=== PATIENT | female | born 1955 | race African-American/Black ===

== ENCOUNTER 2021-12-21 22:14 | Emergency (ER) | payer MEDICARE ==
[~2021-12-21] VITALS: Ht 172.7 cm; Wt 82.6 kg
[2021-12-21] MEDS ORDERED: OXYMETAZOLINE HCL 0.05% NAS 1 SPRAY BTL ONE (23:36)
[2021-12-22] MEDS ORDERED: OXYMETAZOLINE HCL 0.05% NAS 1 SPRAY BTL ONE
[2021-12-22 00:02] VITALS: BP 147/82
== END 2021-12-22 00:02 | disposition home or self-care (01) ==
LOC: FSED 22:38
DX: R04.0 Epistaxis (principal); I10 Essential (primary) hypertension; J30.2 Other seasonal allergic rhinitis
CPT/HCPCS: 99282